=== PATIENT | female | born 1950 | race African-American/Black ===

== ENCOUNTER 2025-02-11 21:26 | Inpatient (IN) | payer BC, MEDICAID, MEDICARE ==
[~2025-02-11] VITALS: Ht 157.5 cm; Wt 113.4 kg
[2025-02-11 21:56] LABS: BASOPHILS % 0.5 % (0.0-2.0); EOSINOPHILS % 2.7 % (0.0-5.0); HEMATOCRIT. 41.1 % (36.0-48.0); HEMOGLOBIN. 13.2 g/dL (12.0-16.0); LYMPHOCYTES % 36.6 % (20.0-50.0); MEAN PLATELET VOLUME 11.3 fl (7.4-10.4); MONOCYTES % 4.9 % (2.0-8.0); NEUTROPHILS % 55.3 % (40.0-76.0); PLATELET 217 x1000/uL (130-400); RED BLOOD CELL COUNT 4.97 mill/uL (4.2-5.4); RED CELL DISTRIBUTION WIDTH 16.6 % (11.6-14.6)
[2025-02-11 21:57] LABS: BG BASE EXCESS -2.1 mmol/L (-2.0-3.0); BG CARBOXYHEMOGLOBIN 0.9 % (0.5-1.5); BG DEOXYHEMOGLOBIN 1.3 % (0.0-5.0); BG FRACTION INSPIRED OXYGEN 60; BG HCO3 ACT 26.3 mmol/L (21.0-28.0); BG METHEMOGLOBIN 0.0 % (0.5-1.5); BG OXYGEN SATURATION 98.7 % (94.0-98.0); BG OXYHEMOGLOBIN 97.8 % (94.0-98.0); BG PCO2 61.5 mmHg (32.0-45.0); BG PEEP (cmH2O) 5.0 cmH2O; BG PH 7.249 (7.350-7.450); BG PO2 141.5 mmHg (83.0-108.0); BG TOTAL HEMOGLOBIN 13.8 g/dL (12.0-16.0); BG VENT MODE MASK - BIPAP; BG VENT RATE 20.0 set
[2025-02-11] MEDS: CEFTRIAXONE 1GM/50ML 50 ML IV ONE (21:57)
[2025-02-11] MEDS: SODIUM CHLORIDE 0.9% (SEPSIS BOLUS) IV ONE (21:57)
[2025-02-11 22:10] LABS: CREATININE 1.0 mg/dL (0.6-1.0)
[2025-02-11 22:11] LABS: UREA NITROGEN BLOOD 15 mg/dL (9-23)
[2025-02-11 22:12] LABS: ASPARTATE AMINOTRANSFERASE 30 IU/L (<34)
[2025-02-11 22:13] LABS: BILIRUBIN DIRECT < 0.1 mg/dL (<=3.0); BILIRUBIN TOTAL 0.3 mg/dL (0.1-1.0); PROTEIN TOTAL 7.6 g/dL (6.0-8.3); TROPONIN I HIGH SENSITIVITY 28 ng/L (3.0-34)
[2025-02-11] MEDS: AZITHROMYCIN 500MG/250ML 250 ML IV ONE (22:14)
[2025-02-11 22:15] LABS: LACTIC ACID 3.9 mmol/L (0.4-2.0)
[2025-02-11] MEDS: IPRATROPIUM/ALBUTEROL 0.5-3(2.5)MG/3ML NEB HHN ONE ×2 (22:21→22:54)
[2025-02-11 22:50] VITALS: RESP 20
[2025-02-12] VITALS (19 sets, daily range): BP systolic 140–202; BP diastolic 75–98; PULSE 64–90; RESP 13–24; TEMP 36.3–37.1; O2SAT 94–100
[2025-02-12] MEDS: HYDRALAZINE 20MG/ML VIAL IV NR (00:33)
[2025-02-12] MEDS ORDERED: DEXTROSE 50% WATER 50ML SYRINGE IV PRN (02:15)
[2025-02-12] MEDS ORDERED: LOSARTAN 50 MG TABLET PO NR (02:15)
[2025-02-12] MEDS ORDERED: HYDRALAZINE HCL 50MG TABLET PO NR (02:30)
[2025-02-12] MEDS ORDERED: CLONIDINE 0.2MG TABLET PO NR (02:45)
[2025-02-12 03:21] LABS: BG BASE EXCESS 2.2 mmol/L (-2.0-3.0); BG CARBOXYHEMOGLOBIN 0.9 % (0.5-1.5); BG DEOXYHEMOGLOBIN 3.0 % (0.0-5.0); BG FRACTION INSPIRED OXYGEN 40; BG HCO3 ACT 27.6 mmol/L (21.0-28.0); BG METHEMOGLOBIN 0.1 % (0.5-1.5); BG OXYGEN SATURATION 97.0 % (94.0-98.0); BG OXYHEMOGLOBIN 96.0 % (94.0-98.0); BG PCO2 46.4 mmHg (32.0-45.0); BG PH 7.393 (7.350-7.450); BG PO2 91.3 mmHg (83.0-108.0); BG TOTAL HEMOGLOBIN 13.1 g/dL (12.0-16.0); BG VENT MODE MASK - BIPAP; BG VENT RATE 20.0 set
[2025-02-12] MEDS ORDERED: IPRATROPIUM/ALBUTEROL 0.5-3(2.5)MG/3ML NEB HHN SCH (04:00)
[2025-02-12] MEDS: HYDRALAZINE HCL 50MG TABLET PO SCH (06:23)
[2025-02-12 06:59] LABS: BASOPHILS % 0.1 % (0.0-2.0); EOSINOPHILS % 0.5 % (0.0-5.0); HEMATOCRIT. 38.2 % (36.0-48.0); HEMOGLOBIN. 12.4 g/dL (12.0-16.0); LYMPHOCYTES % 15.8 % (20.0-50.0); MEAN PLATELET VOLUME 11.3 fl (7.4-10.4); MONOCYTES % 3.1 % (2.0-8.0); NEUTROPHILS % 80.5 % (40.0-76.0); PLATELET 144 x1000/uL (130-400); RED BLOOD CELL COUNT 4.66 mill/uL (4.2-5.4); RED CELL DISTRIBUTION WIDTH 16.7 % (11.6-14.6)
[2025-02-12 07:07] LABS: INR 1.1
[2025-02-12 07:31] LABS: CREATININE 0.8 mg/dL (0.6-1.0)
[2025-02-12 07:32] LABS: LDL CHOLESTEROL 114 mg/dL (5-100); TRIGLYCERIDE 78 mg/dL (0-150); UREA NITROGEN BLOOD 13 mg/dL (9-23)
[2025-02-12] MEDS: INSULIN LISPRO 100 UNITS/ML SUBCUT SCH (08:00)
[2025-02-12] MEDS: BLOOD SUGAR DIAGNOSTIC STRIP TEST SCH (08:11)
[2025-02-12] MEDS: ENOXAPARIN 40MG/0.4ML SYR SUBCUT SCH (08:31)
[2025-02-12] MEDS: METFORMIN HCL 500MG TABLET PO SCH (08:32)
[2025-02-12] MEDS: ASPIRIN 81MG TABLET PO SCH (08:32)
[2025-02-12] MEDS: METOPROLOL TARTRATE 50MG TABLET PO SCH (08:33)
[2025-02-12] MEDS: LOSARTAN 50 MG TABLET PO SCH (08:33)
[2025-02-12] MEDS: AMLODIPINE 10MG TABLET PO SCH (08:34)
[2025-02-12] MEDS: BUDESONIDE 0.5MG/2ML NEB HHN SCH (08:45)
[2025-02-12] MEDS: IPRATROPIUM/ALBUTEROL 0.5-3(2.5)MG/3ML NEB HHN SCH (08:45)
[2025-02-12] MEDS: LORATADINE 10MG TABLET PO SCH (11:12)
[2025-02-12] MEDS: FAMOTIDINE 20MG TABLET PO SCH (11:12)
[2025-02-12] MEDS: FUROSEMIDE 40MG/4ML VIAL IVP NR (11:12)
[2025-02-12] MEDS: POTASSIUM CHLORIDE 20MEQ TABLET SR PO SCH (11:31)
[2025-02-12 17:09] LABS: CLARITY URINE CLEAR (CLEAR); COLOR URINE YELLOW (YELLOW); GLUCOSE URINE NEGATIVE (NEGATIVE); KETONES URINE NEGATIVE (NEGATIVE); LEUKOCYTE ESTERASE URINE NEGATIVE (NEGATIVE); NITRITE URINE NEGATIVE (NEGATIVE); OCCULT BLOOD URINE TRACE (NEGATIVE); PH URINE 7.0 (4.5-8.0); PROTEIN URINE NEGATIVE (NEGATIVE); SPECIFIC GRAVITY URINE 1.007 (1.005-1.030); UROBILINOGEN URINE 0.2 E.U./dL (0.2-1.0)
[2025-02-12] MEDS: MONTELUKAST SODIUM 10MG TABLET PO SCH (17:30)
[2025-02-12 17:42] LABS: BACTERIA URINE 1+; RBC URINE 0-2 /hpf (0-2); SQUAMOUS EPITHELIAL CELL URINE 1+ /lpf (RARE/1+); WBC URINE 0-2 /hpf (0-2); YEAST URINE 1+
[2025-02-12] MEDS: ATORVASTATIN CALCIUM 40MG TABLET PO SCH (21:53)
[2025-02-13] VITALS (16 sets, daily range): BP systolic 133–203; BP diastolic 78–120; PULSE 58–86; RESP 17–24; TEMP 36.2–36.8; O2SAT 92–99
[2025-02-13] MEDS: HYDROCODONE/ACETAMINOPHEN 5/325MG TABLET PO PRN (06:57)
[2025-02-13] MEDS ORDERED: NALOXONE HCL 0.4MG/ML VIAL IV PRN (10:30)
[2025-02-13] MEDS: FUROSEMIDE 40MG/4ML VIAL IVP NR (10:55)
[2025-02-13] MEDS: ONDANSETRON HCL 4MG TABLET PO PRN (20:56)
[2025-02-14] VITALS (16 sets, daily range): BP systolic 128–171; BP diastolic 60–107; PULSE 62–87; RESP 15–22; TEMP 36.2–37.2; O2SAT 86–99
[2025-02-14] MEDS ORDERED: HYDRALAZINE 20MG/ML VIAL IV PRN (07:00)
[2025-02-14] MEDS: ENOXAPARIN 30MG/0.3ML SYR SUBCUT SCH (09:16)
[2025-02-14 16:16] LABS: BG BASE EXCESS 4.0 mmol/L (-2.0-3.0); BG CARBOXYHEMOGLOBIN 0.7 % (0.5-1.5); BG DEOXYHEMOGLOBIN 20.0 % (0.0-5.0); BG FRACTION INSPIRED OXYGEN 21; BG HCO3 ACT 29.7 mmol/L (21.0-28.0); BG METHEMOGLOBIN 0.3 % (0.5-1.5); BG OXYGEN SATURATION 79.8 % (94.0-98.0); BG OXYHEMOGLOBIN 79.0 % (94.0-98.0); BG PCO2 49.5 mmHg (32.0-45.0); BG PH 7.396 (7.350-7.450); BG PO2 45.0 mmHg (83.0-108.0); BG SAMPLE SITE RIGHT BRACHIAL; BG TOTAL HEMOGLOBIN 12.5 g/dL (12.0-16.0); BG VENT MODE ROOM AIR
[2025-02-14] MEDS: HYDRALAZINE HCL 100MG TABLET PO SCH (18:28)
[2025-02-14] MEDS: THROAT LOZENGES-BENZOCAINE/MENTH/CETYLPYRD CL LOZENGES MM PRN (20:43)
[2025-02-15] VITALS (12 sets, daily range): BP systolic 123–165; BP diastolic 70–91; PULSE 61–88; RESP 14–20; TEMP 36.3–36.9; O2SAT 96–100
[2025-02-15] MEDS: POTASSIUM CHLORIDE 20MEQ TABLET SR PO SCH (10:39)
[2025-02-15] MEDS: FUROSEMIDE 40MG TABLET PO SCH (10:39)
[2025-02-15] MEDS ORDERED: FURO-151 MT (17:19)
[2025-02-15] MEDS ORDERED: ALBU18HF2 IH (17:19)
[2025-02-15] MEDS ORDERED: POTA-205 MT (17:19)
== END 2025-02-15 19:15 | disposition home or self-care (01) | DRG 193 ==
LOC: ER 21:26 → EDBEDREQ 21:46 → 5EST 23:46 → EDBEDREQ 23:49 → ENRESERV 23:53
PROVIDERS: ADMIT Internal Medicine; ATTEND Internal Medicine
PROC: 5A09357 Assistance with Respiratory Ventilation, Less than 24 Consecutive Hours, Continuous Positive Airway Pressure (ICD-10-PCS; principal; 2025-02-11)
PROC: 5A09357 Assistance with Respiratory Ventilation, Less than 24 Consecutive Hours, Continuous Positive Airway Pressure (ICD-10-PCS; 2025-02-12)
DX: J18.9 Pneumonia, unspecified organism (principal); I50.41 Acute combined systolic (congestive) and diastolic (congestive) heart failure; J96.01 Acute respiratory failure with hypoxia; J45.901 Unspecified asthma with (acute) exacerbation; G93.40 Encephalopathy, unspecified; Z68.42 Body mass index [BMI] 45.0-49.9, adult; I11.0 Hypertensive heart disease with heart failure; I16.0 Hypertensive urgency; E66.01 Morbid (severe) obesity due to excess calories; K21.9 Gastro-esophageal reflux disease without esophagitis; G47.33 Obstructive sleep apnea (adult) (pediatric); G89.29 Other chronic pain; M25.561 Pain in right knee; M25.562 Pain in left knee; D72.10 Eosinophilia, unspecified; Z79.899 Other long term (current) drug therapy
CPT/HCPCS: 36415; 36600; 71045; 80048; 80061; 80076; 81003; 82375; 82805; 82962; 83036; 83605; 83880; 84145; 84484; 85025; 93005; 94070; 94640; 94660; 94664; 94760; 97162; 97166; 97530; 97535; 98960; 99291; A4606; J0360; J0456; J0696; J1650; J1940; J7030; J7626; Q0162